=== PATIENT | male | born 1980 | race Two or more races ===

== ENCOUNTER 2017-02-09 18:41 | Emergency (ER) | payer MEDICAID ==
[~2017-02-09] VITALS: Ht 167.6 cm; Wt 99.8 kg
[2017-02-09 18:49] VITALS: BP 133/82
[2017-02-09] MEDS ORDERED: FLUORESCEIN SOD 1 MG TEST STRIP LEFTEYE ONE (20:00)
[2017-02-09] MEDS ORDERED: TETRACAINE HCL 0.5% OPTH(EYE) SOLN 4ML LEFTEYE ONE (20:00)
== END 2017-02-09 21:23 | disposition home or self-care (01) ==
LOC: ER 18:48
DX: T15.92XA Foreign body on external eye, part unspecified, left eye, initial encounter (principal); X58.XXXA Exposure to other specified factors, initial encounter; Y93.89 Activity, other specified; Y99.8 Other external cause status; Y92.89 Other specified places as the place of occurrence of the external cause